=== PATIENT | female | born 1950 | race Caucasian/White ===

== ENCOUNTER 2024-04-01 05:36 | Day surgery (SDC) | payer MEDICARE, BC ==
[2024-04-01] MEDS ORDERED: SODIUM CHLORIDE 0.9% 1,000 ML in EMPTY BAG 1 BAG IV SCH (06:05)
[2024-04-01] MEDS ORDERED: ALPRAZolam 0.25 MG TAB PO PRN (06:05)
[2024-04-01] MEDS ORDERED: ALPRAZolam 0.5 MG TAB PO PRN (06:05)
[2024-04-01] MEDS ORDERED: NITROGLYCERIN SL TABS 0.4 MG TAB SUBLINGUAL PRN (06:05)
[2024-04-01] MEDS: SODIUM CHLORIDE 0.9% 1,000 ML IV ONE (06:15)
[2024-04-01 06:46] VITALS: RESP 16; TEMP 97.9
[2024-04-01] MEDS ORDERED: HEPARIN SODIUM,PORCINE (1 ML) 2,500 UNIT in SODIUM CHLORIDE 0.9% 250 ML IRRIGATION PRN (07:00)
[2024-04-01] MEDS ORDERED: HEPARIN SODIUM,PORCINE 10,000 UNIT in SODIUM CHLORIDE 0.9% 1,000 ML IRRIGATION PRN (07:00)
[2024-04-01] MEDS ORDERED: ASPIRIN 325 MG TAB PO ONE (07:00)
[2024-04-01 07:10] LABS: Basophils # (A) 0.1 k/uL (0-0.2); Basophils % (A) 1 %; Eosinophils # (A) 0.2 k/uL (0-0.7); Eosinophils % (A) 3 %; HCT 42.1 % (34.0-46.0); HGB 14.1 gm/dL (11.4-16.0); Lymphocytes # (A) 2.7 k/uL (1.0-4.8); Lymphocytes % (A) 41 %; MCH 30.8 pg (25.0-35.0); MCHC 33.5 g/dL (31.0-37.0); MCV 91.8 fL (80.0-100.0); Monocytes # (A) 0.3 k/uL (0-1.0); Monocytes % (A) 5 %; Neutrophils # (A) 3.1 k/uL (1.3-7.7); Neutrophils % (A) 47 %; Platelet Count 148 k/uL (150-450); RBC 4.58 m/uL (3.80-5.40); RDW 13.1 % (11.5-15.5); WBC 6.5 k/uL (3.8-10.6)
[2024-04-01 07:21] LABS: African American GFR (CKD) >90 (>60 ml/min/1.73 sqM); Blood Urea Nitrogen 14 mg/dL (7-17); Calcium 9.3 mg/dL (8.4-10.2); Carbon Dioxide 24 mmol/L (22-30); Glucose 101 mg/dL (74-99); Non-African American GFR(CKD) 88 (>60 ml/min/1.73 sqM); Potassium 3.8 mmol/L (3.5-5.1); Sodium 139 mmol/L (137-145)
[2024-04-01] MEDS ORDERED: VERAPAMIL 2.5 MG/ML 2 ML AMP ONE (07:25)
[2024-04-01] MEDS ORDERED: LIDOCAINE 1% INJ 10MG/ML (20 ML MDV) ONE (07:25)
[2024-04-01] MEDS ORDERED: fentaNYL (PF) 50 MCG/ML 2 ML AMP ONE (07:25)
[2024-04-01] MEDS ORDERED: HEPARIN SODIUM 1,000 UN/ML (10ML VL) ONE (07:26)
[2024-04-01] MEDS: fentaNYL (PF) 50 MCG/ML 2 ML AMP IVP ONE (07:30)
[2024-04-01] MEDS: LIDOCAINE 1% INJ 10MG/ML (20 ML MDV) SQ ONE (07:34)
[2024-04-01] MEDS: VERAPAMIL SYRINGE (5 MG/10 ML) INTRAARTER ONE (07:35)
[2024-04-01] MEDS: HEPARIN SODIUM 1,000 UN/ML (10ML VL) IVP ONE (07:40)
[2024-04-01] MEDS: IOPAMIDOL-370 200ML BTL INJ ONE (07:45)
[2024-04-01 07:48] LABS: Anion Gap 9 mmol/L; Chloride 106 mmol/L (98-107)
[2024-04-01] MEDS ORDERED: RX INFO: IV CONTRAST WAS GIVEN 1 EACH MISC MISCELLANE PRN (07:55)
[2024-04-01] MEDS ORDERED: PANTOPRAZOLE 40 MG TABLET PO PRN (07:56)
[2024-04-01] MEDS ORDERED: ONDANSETRON 4 MG/2 ML VIAL ONE ×2 (07:57→13:02)
[2024-04-01] MEDS ORDERED: SODIUM CHLORIDE 0.9% 1,000 ML IV SCH (08:00)
--- NOTE | 2024-04-01 08:00 | P.CARDCATH ---
Date of Procedure: 04/01/24 Description of Procedure: Cardiac Catheterization: The patient is a 73-year-old female with a history of hyperlipidemia who presented with symptoms of chest discomfort and had an abnormal MPI with inferior and inferoseptal reversible defect. Recommendations were made regarding cardiac catheterization, the risks and the complications were discussed with the patient who is in full understanding and agreement. Procedure Description: Patient was brought to [facility] in fasting semi-sedated state after receiving Fentanyl and Benadryl achieiving moderate conscious sedated state. Using Xylocaine Anesthesia and modified Seldinger technique, a 6-Bulgarian sheath was introduced in the right radial artery . Subsequently, selective coronary angiography was performed using a 5-Bulgarian 3.5 bend Yaz catheter. Multiple views of the coronary artery including hemiaxial views were obtained. The 5 Bulgarian Yaz catheter was used to cross the aortic valve and LVEDP was calculated. Following that, catheter and sheath were removed. Hemostasis was obtained with deployment of vascular band . There was no immediate complication. Patient was returned to room in stable condition. Of note, the patient received a total of 3500 units of intravenous heparin as well as intra-arterial verapamil. Findings: Fluoroscopy: Calcifications of the LAD was noted Left main: This is a large size vessel, bifurcating into LAD and left circumflex, left main has no obstructive disease LAD: This is a large size vessel, reaching to the apex giving rise to 2 diagonal branch of small to moderate caliber. The LAD and its branches have no significant obstructive disease. Left circumflex: This is a large nondominant vessel, giving rise to large proximal obtuse marginal branch the second and third obtuse marginal branch are small in caliber. The left circumflex and its branches have no obstructive disease RCA: This is a large dominant vessel bifurcating distally to PDA and PLV the right coronary artery and its branches have no evidence of significant obstructive disease Left Ventriculogram: Not performed Hemodynamics: There was no gradient across the aortic valve, LVEDP was 12-16 mmHg Conclusion: 1. Calcified proximal LAD 2. No obstructive disease in the LAD, left circumflex or RCA 3. Right dominance 4. Normal LVEDP Recommendations: At this time I will continue medical therapy with aggressive coronary risks modifications. The findings and the recommendations were discussed with the patient and the family and they were in full understanding and agreement. Duration of sedation is 12 minutes.
[2024-04-01 14:51] VITALS: BP 132/63; PULSE 52
[2024-04-02] MEDS ORDERED: ATORVASTATIN 20 MG TAB PO SCH (09:00)
[2024-04-02] MEDS ORDERED: METOPROLOL SUCCINATE (ER) 25 MG TAB.ER.24H PO SCH (09:00)
[2024-04-02] MEDS ORDERED: MULTIVITAMINS, THERA 1 EACH TAB PO SCH (09:00)
[2024-04-02] MEDS ORDERED: ASPIRIN 81 MG PO SCH (09:00)
== END 2024-04-01 14:17 | disposition home or self-care (01) ==
LOC: CATHCVL 05:36
PROVIDERS: ATTEND Internal Medicine Interventional Cardiology
DX: I25.10 Atherosclerotic heart disease of native coronary artery without angina pectoris
CPT/HCPCS: 80048; 85025; 93458